=== PATIENT | female | born 1985 | race African-American/Black ===

== ENCOUNTER 2024-02-14 21:11 | Emergency (ER) | payer MEDICARE, MEDICAID ==
[~2024-02-14] VITALS: Ht 170.2 cm; Wt 99.3 kg
[2024-02-14 21:49] LABS: BASOPHILS # (AUTO) 0.1 K/UL (0.0-0.2); BASOPHILS % (AUTO) 2.3 % (0.0-2.0); EOSINOPHILS % (AUTO) 0.3 % (0.0-7.0); HEMATOCRIT 27.9 % (31.2-41.9); HEMOGLOBIN 8.8 g/dL (10.9-14.3); LYMPHOCYTES # (AUTO) 2.3 K/uL (0.8-4.8); LYMPHOCYTES % (AUTO) 46.6 % (20.5-51.5); MEAN CORPUSCULAR HEMOGLOBIN 21.2 uug (24.7-32.8); MEAN CORPUSCULAR HGB CONC 31 g/dL (32.3-35.6); MEAN CORPUSCULAR VOLUME 67.4 fL (75.5-95.3); MONOCYTES # (AUTO) 0.4 K/uL (0.1-1.30); NEUTROPHILS % (AUTO) 41.8 % (38.5-71.5); PLATELET COUNT (AUTO) 429 K/uL (179-408); RED BLOOD CELL COUNT(AUTO) 4.15 MIL/uL (3.63-4.92); RED CELL DISTRIBUTION WIDTH 18.5 % (12.3-17.7); WHITE BLOOD COUNT (AUTO) 4.8 K/uL (3.8-11.8)
[2024-02-14 21:54] LABS: DIFFERENTIAL COMMENT 1
[2024-02-14 22:01] LABS: CALCIUM 8.4 mg/dL (8.5-10.1); CARBON DIOXIDE 25 mmol/L (21-32); CHLORIDE 102 mmol/L (98-107); CREATININE 0.8 mg/dL (0.6-1.3); GLUCOSE 98 mg/dL (74-106); POTASSIUM 3.8 mmol/L (3.5-5.1); SODIUM SERUM 136 mmol/L (136-145); UREA NITROGEN, BLOOD 12 mg/dL (7-18)
[2024-02-14 22:11] LABS: ALANINE AMINOTRANSFERASE 14 U/L (14-59); ALBUMIN 3.7 g/dL (3.4-5.0); ALKALINE PHOSPHATASE 77 U/L (50-136); ASPARTATE AMINOTRANSFERASE 5 U/L (15-37); BILIRUBIN,DIRECT < 0.1 mg/dL (0.0-0.2); BILIRUBIN,TOTAL 0.2 mg/dL (0.2-1.0); TOTAL PROTEIN, SERUM 7.3 g/dL (6.4-8.2)
[2024-02-14 23:58] LABS: *URINE HCG, QUAL NEGATIVE (NEGATIVE)
[2024-02-15] MEDS ORDERED: IBUPROFEN 600 MG TABLET ONE (02:03)
[2024-02-15] MEDS ORDERED: CYCLOBENZAPRINE HCL 10 MG TABLET ONE (02:04)
[2024-02-15] MEDS: CYCLOBENZAPRINE HCL 10 MG TABLET PO ONE (02:05)
[2024-02-15] MEDS: IBUPROFEN 600 MG TABLET PO ONE (02:05)
[2024-02-15 02:33] VITALS: BP 143/93; TEMP 98.3; O2SAT 98
== END 2024-02-15 02:10 | disposition left against medical advice (07) ==
LOC: ER 21:17
DX: R07.89 Other chest pain (principal); R03.0 Elevated blood-pressure reading, without diagnosis of hypertension; D50.9 Iron deficiency anemia, unspecified; R10.2 Pelvic and perineal pain
CPT/HCPCS: 36415; 71045; 84484; 84703; 85025; 85730; 93005; A4606; A4663